=== PATIENT | male | born 1935 | race Hispanic/Latino ===

== ENCOUNTER 2022-11-05 10:11 | Inpatient (IN) | payer MEDICARE, OTHER ==
[~2022-11-05] VITALS: Ht 180.3 cm; Wt 80.7 kg
[2022-11-05 10:57] LABS: BASOPHILS % (AUTO) 0.9 % (0.0-5.0); EOSINOPHILS % (AUTO) 3.7 % (0.0-8.0); HEMATOCRIT 22.6 % (42-54); LYMPHOCYTES % (AUTO) 15.2 % (21.0-51.0); MEAN CORPUSCULAR HEMOGLOBIN 35.3 pg (27.0-33.0); MEAN CORPUSCULAR HGB CONC 31.4 g/dL (32.0-36.0); MEAN CORPUSCULAR VOLUME 112.4 fL (79-99); MONOCYTES % (AUTO) 20.7 % (3.0-13.0); NEUTROPHILS % (AUTO) 58.9 % (40.0-77.0); PLATELET COUNT (AUTO) 94 K/uL (130-400); RED BLOOD CELL COUNT(AUTO) 2.01 MIL/uL (4.50-6.20); RED CELL DISTRIBUTION WIDTH 17.5 % (11.0-15.5); WHITE BLOOD COUNT (AUTO) 3.2 K/uL (4.8-10.8)
[2022-11-05 11:03] LABS: CREATININE 3.7 mg/dL (0.5-1.5); POTASSIUM 4.4 mmol/L (3.5-5.1)
[2022-11-05 11:12] LABS: TOTAL PROTEIN, SERUM 6.9 g/dL (6.0-8.3)
[2022-11-05 11:27] LABS: B-TYPE NATRIURETIC PEPTIDE 766 pg/mL (0-100)
[2022-11-05 13:32] LABS: CRP QUANTITATIVE < 2.00 mg/L (0.00-9.0)
[2022-11-05 13:33] LABS: CREATINE KINASE, TOTAL 75 U/L (21-232)
[2022-11-05] MEDS ORDERED: ONDANSETRON 4MG INJ IV PRN (14:30)
[2022-11-05] MEDS ORDERED: ACETAMINOPHEN 325 MG TAB PO PRN ×2 (14:30)
[2022-11-05] MEDS ORDERED: FUROSEMIDE 40MG VIAL IV SCH (14:30)
[2022-11-05] MEDS ORDERED: BUMETANIDE 2.5MG/10ML VIAL 40 ML IV SCH (14:30)
[2022-11-05 14:48] LABS: INR 1.25 (0.85-1.15); PROTHROMBIN TIME 13.5 SEC (9.6-11.6)
[2022-11-05 14:59] LABS: RETICULOCYTE % (AUTO) 4.18 % (0.42-2.23)
[2022-11-05 15:20] LABS: % IRON SATURATION 11.1 % (30-44)
[2022-11-05 15:30] LABS: THYROID STIMULATING HORMONE 7.96 uIU/mL (0.36-3.74)
[2022-11-05] MEDS: BUMETANIDE 0.25MG/ML 40ML IV SCH (15:51)
[2022-11-05] MEDS ORDERED: FAMO20TA8 PO (17:59)
[2022-11-05] MEDS ORDERED: SPIR25TA6 PO (17:59)
[2022-11-05] MEDS ORDERED: DULA0.75 SQ (17:59)
[2022-11-05] MEDS ORDERED: FOLI0.4T6 PO (17:59)
[2022-11-05] MEDS ORDERED: ROSU20TA31 PO (17:59)
[2022-11-05] MEDS ORDERED: CARV12.511 PO (17:59)
[2022-11-05] MEDS ORDERED: PIOG15TA66 PO (17:59)
[2022-11-05] MEDS ORDERED: QUET50TA24 PO (17:59)
[2022-11-05] MEDS ORDERED: MIRT-22 PO (17:59)
[2022-11-05] MEDS ORDERED: DAPA10TA PO (17:59)
[2022-11-05] MEDS ORDERED: LEVO75CA5 PO (17:59)
[2022-11-05] MEDS ORDERED: RIVA2.5T PO (17:59)
[2022-11-05] MEDS ORDERED: CARVED (17:59)
[2022-11-05] MEDS ORDERED: FURO20TA4 PO (17:59)
[2022-11-05] MEDS ORDERED: FAMOTIDINE 20MG VIAL IV SCH (21:00)
[2022-11-05 22:15] VITALS: BP 119/42
[2022-11-06 00:05] LABS: APPEARANCE,URINE CLEAR (CLEAR); BILIRUBIN,URINE NEGATIVE (NEGATIVE); COLOR,URINE COLORLESS (YELLOW); GLUCOSE, URINE (UA) 300 mg/dL (NEGATIVE); KETONES,URINE NEGATIVE (NEGATIVE); LEUKOCYTE ESTERASE ,URINE NEGATIVE Leu/uL (NEGATIVE); NITRATE,URINE NEGATIVE (NEGATIVE); OCCULT BLOOD,URINE LARGE (NEGATIVE); PH,URINE 5.5 (5.0-8.0); PROTEIN,URINE NEGATIVE (NEGATIVE); UROBILINOGEN,URINE 0.2 mg/dL (0.2-1.0)
[2022-11-06 00:11] LABS: MUCUS,URINE RARE LPF (None Seen); RBC,URINE 51-100 /HPF (0-1); WBC,URINE 0-1 /HPF (0-1)
[2022-11-06 01:20] VITALS: BP 165/89
[2022-11-06 04:00] VITALS: BP 121/39
[2022-11-06 07:25] VITALS: BP 113/37
[2022-11-06 07:30] LABS: BASOPHILS % (AUTO) 0.5 % (0.0-5.0); EOSINOPHILS % (AUTO) 3.8 % (0.0-8.0); HEMATOCRIT 22.8 % (42-54); LYMPHOCYTES % (AUTO) 19.6 % (21.0-51.0); MEAN CORPUSCULAR HEMOGLOBIN 35.8 pg (27.0-33.0); MEAN CORPUSCULAR VOLUME 111.8 fL (79-99); MONOCYTES % (AUTO) 22.6 % (3.0-13.0); NEUTROPHILS % (AUTO) 53.2 % (40.0-77.0); PLATELET COUNT (AUTO) 98 K/uL (130-400); RED BLOOD CELL COUNT(AUTO) 2.04 MIL/uL (4.50-6.20); RED CELL DISTRIBUTION WIDTH 17.4 % (11.0-15.5); WHITE BLOOD COUNT (AUTO) 3.7 K/uL (4.8-10.8)
[2022-11-06 07:36] LABS: CREATININE 3.9 mg/dL (0.5-1.5); POTASSIUM 4.5 mmol/L (3.5-5.1)
[2022-11-06] MEDS: BUMETANIDE 0.25MG/ML 40ML IV SCH ×2 (08:47→21:12)
[2022-11-06] MEDS ORDERED: METOLAZONE 2.5 MG TABLET PO SCH (10:00)
[2022-11-06 11:05] VITALS: BP 114/48
[2022-11-06 11:48] LABS: HEMATOCRIT 23.5 % (42-54); MEAN CORPUSCULAR HEMOGLOBIN 35.1 pg (27.0-33.0); MEAN CORPUSCULAR HGB CONC 31.5 g/dL (32.0-36.0); MEAN CORPUSCULAR VOLUME 111.4 fL (79-99); PLATELET COUNT (AUTO) 98 K/uL (130-400); RED BLOOD CELL COUNT(AUTO) 2.11 MIL/uL (4.50-6.20); RED CELL DISTRIBUTION WIDTH 17.5 % (11.0-15.5); WHITE BLOOD COUNT (AUTO) 5.1 K/uL (4.8-10.8)
[2022-11-06] MEDS ORDERED: TAMSULOSIN HCL 0.4 MG CAP.ER.24H PO SCH (12:00)
[2022-11-06] MEDS: FOLIC ACID 1 MG TABLET PO SCH (12:15)
[2022-11-06 12:22] LABS: EOSINOPHILS % (MANUAL) 1 % (1-6); LYMPHOCYTES % (MANUAL) 6 % (22-44); MAN.DIFF COMMENT-IMPRESSION MANUAL DIFFERENTIAL; MONOCYTES % (MANUAL) 10 % (2-9); PLATELET MORPHOLOGY COMMENT DECREASED; SEGMENTED NEUTROPHILS % 83 % (40-70)
[2022-11-06 15:45] VITALS: BP 101/62
[2022-11-06 20:21] VITALS: BP 120/47
[2022-11-06] MEDS: QUETIAPINE FUMARATE 25 MG TAB PO SCH (21:06)
[2022-11-07] VITALS (7 sets, daily range): BP systolic 93–113; BP diastolic 37–63
[2022-11-07 06:10] LABS: BASOPHILS % (AUTO) 0.5 % (0.0-5.0); EOSINOPHILS % (AUTO) 2.9 % (0.0-8.0); HEMATOCRIT 24.6 % (42-54); LYMPHOCYTES % (AUTO) 16.5 % (21.0-51.0); MEAN CORPUSCULAR HEMOGLOBIN 34.8 pg (27.0-33.0); MEAN CORPUSCULAR HGB CONC 31.3 g/dL (32.0-36.0); MEAN CORPUSCULAR VOLUME 111.3 fL (79-99); MONOCYTES % (AUTO) 25.8 % (3.0-13.0); NEUTROPHILS % (AUTO) 53.8 % (40.0-77.0); PLATELET COUNT (AUTO) 90 K/uL (130-400); RED BLOOD CELL COUNT(AUTO) 2.21 MIL/uL (4.50-6.20); RED CELL DISTRIBUTION WIDTH 16.8 % (11.0-15.5); WHITE BLOOD COUNT (AUTO) 4.2 K/uL (4.8-10.8)
[2022-11-07 06:23] LABS: CREATININE 4.3 mg/dL (0.5-1.5); MAGNESIUM 1.9 mg/dL (1.80-2.40); POTASSIUM 3.4 mmol/L (3.5-5.1)
[2022-11-07 06:40] LABS: % IRON SATURATION 18.6 % (30-44)
[2022-11-07] MEDS: FOLIC ACID 1 MG TABLET PO SCH (10:19)
[2022-11-07] MEDS ORDERED: BUMETANIDE 2.5MG/10ML VIAL 80 ML IV SCH (10:30)
[2022-11-07] MEDS: QUETIAPINE FUMARATE 25 MG TAB PO SCH ×2 (12:11→21:06)
[2022-11-07] MEDS: EPOETIN ALFA-EPBX (NON-ESRD) 10,000 UNIT/ML VIAL SQ SCH (15:22)
[2022-11-07] MEDS: IRON SUCROSE COMPLEX 300 MG in 0.9% NACL 250ML 250 ML IV SCH (15:22)
[2022-11-07] MEDS ORDERED: TAMSULOSIN HCL 0.4 MG CAP.ER.24H PO SCH (21:00)
[2022-11-07] MEDS: RIVAROXABAN 2.5 MG TABLET PO SCH (21:09)
[2022-11-08 00:17] VITALS: BP 104/48
[2022-11-08 04:07] VITALS: BP 101/49
[2022-11-08 08:00] VITALS: BP 104/37
[2022-11-08] MEDS: RIVAROXABAN 2.5 MG TABLET PO SCH (08:57)
[2022-11-08] MEDS: QUETIAPINE FUMARATE 25 MG TAB PO SCH (08:57)
[2022-11-08] MEDS: FOLIC ACID 1 MG TABLET PO SCH (08:57)
[2022-11-08] MEDS ORDERED: BUMETANIDE 0.25MG/ML 40ML IV SCH (10:30)
[2022-11-08 11:57] VITALS: BP 110/49
[2022-11-08] MEDS: EPOETIN ALFA-EPBX (NON-ESRD) 10,000 UNIT/ML VIAL SQ SCH (12:17)
[2022-11-08] MEDS: IRON SUCROSE COMPLEX 300 MG in 0.9% NACL 250ML 250 ML IV SCH (12:17)
[2022-11-08] MEDS ORDERED: COMPOUND IV MISC 1 EACH IVSOLN MISC PRN (12:30)
[2022-11-08] MEDS ORDERED: FUROSEMIDE 40 MG TABLET PO SCH (13:00)
[2022-11-08] MEDS ORDERED: FURO40TA7 PO (14:46)
[2022-11-08] MEDS ORDERED: TAMS-1 PO (14:46)
[2022-11-08 16:00] VITALS: BP 105/54
== END 2022-11-08 17:20 | disposition hospice, home (50) | DRG 291 ==
LOC: EDH 10:11 → EDHIP 14:07 → 4AH 21:10
PROVIDERS: ADMIT Internal Medicine; ATTEND Internal Medicine
DX: I13.0 Hypertensive heart and chronic kidney disease with heart failure and stage 1 through stage 4 chronic kidney disease, or unspecified chronic kidney disease (principal); I50.23 Acute on chronic systolic (congestive) heart failure; D61.818 Other pancytopenia; N18.4 Chronic kidney disease, stage 4 (severe); N17.9 Acute kidney failure, unspecified; R09.02 Hypoxemia; I48.0 Paroxysmal atrial fibrillation; I44.0 Atrioventricular block, first degree; I27.20 Pulmonary hypertension, unspecified; D46.9 Myelodysplastic syndrome, unspecified; I25.10 Atherosclerotic heart disease of native coronary artery without angina pectoris; I36.1 Nonrheumatic tricuspid (valve) insufficiency; E11.22 Type 2 diabetes mellitus with diabetic chronic kidney disease; E78.00 Pure hypercholesterolemia, unspecified; Z95.1 Presence of aortocoronary bypass graft; Z79.84 Long term (current) use of oral hypoglycemic drugs; Z79.899 Other long term (current) drug therapy; Z79.01 Long term (current) use of anticoagulants
CPT/HCPCS: 36415; 71045; 76770; 80048; 80053; 81001; 82043; 82270; 82550; 82570; 82607; 82728; 82746; 82948; 83540; 83550; 83735; 83880; 83930; 83935; 84100; 84145; 84156; 84300; 84443; 84484; 85025; 85045; 85610; 85730; 86140; 93005; 93306; 93356; 93970; G0378; J1756; J3490; J7050